=== PATIENT | female | born 1940 ===

== ENCOUNTER 2020-12-09 09:21 | Day surgery (SDC) | payer OTHER ==
[~2020-12-09 09:21] MED LIST: ABANEU-SL TABL1 EACH SL; CALCIU PO; GABAPENT PO; LIPITOR20 MG PO; OMEGA3 PO; PAXIL20 MG PO; SYNTHROID88 MCG PO
[2020-12-09] MEDS ORDERED: KEFLEX750 MG PO (12:15)
[2020-12-09] MEDS ORDERED: ULTRACET PO (12:16)
== END 2020-12-09 14:40 | disposition home or self-care (01) ==
LOC: CIR.AMB 09:21
PROVIDERS: ATTEND Obstetrics & Gynecology Gynecology
DX: N32.81 Overactive bladder (principal); N39.41 Urge incontinence; Z20.822 Contact with and (suspected) exposure to COVID-19
CPT/HCPCS: 64590; 64581; 95972; C1778; L8679